=== PATIENT | male | born 1945 | race Caucasian/White ===

== ENCOUNTER 2019-04-29 21:35 | Emergency (ER) | payer MEDICARE, MEDICAID, SELFPAY ==
[2019-04-29 21:36] VITALS: BP 196/100; PULSE 67; RESP 18; TEMP 36.8; O2SAT 99; BMI 35.2
--- NOTE | 2019-04-29 21:58 | CT_ITS ---
STUDY: CT BRAIN WITHOUT CONTRAST REASON FOR EXAM: Male, 73 years old. Injury after falling downstairs. Pain. TECHNIQUE: Transaxial CT imaging of the brain was performed without administration of intravenous contrast material. Individualized dose optimization techniques were used for this CT. COMPARISON: No relevant priors. FINDINGS: No evidence of intracranial hemorrhage, mass, acute infarct, or hydrocephalus. Chronic microangiopathic changes in the white matter. Atherosclerosis of the intracranial arteries. No skull fracture or acute osseous abnormality. Visualized paranasal sinuses and mastoid air cells patent. Left supraorbital frontal scalp hematoma. CT/Brain/Head without Contrast IMPRESSION: No evidence of intracranial injury or skull fracture. Left supraorbital frontal scalp hematoma. Electronically Signed: Andrew Schmidt, at 22:58 EST Tel , Service support ,
--- NOTE | 2019-04-29 21:59 | RAD_ITS ---
STUDY: X-RAY - LEFT SHOULDER REASON FOR EXAM: Male, 73 years old. Pain after falling. TECHNIQUE: 2 view(s) of the shoulder. COMPARISON: None. FINDINGS: Acute impacted comminuted fracture of the proximal left humerus extending through the anatomic neck, and through a portion of the base of the greater trochanter. Glenohumeral and acromioclavicular alignment maintained. No other fracture is evident. Left axillary surgical clips and soft tissue calcifications adjacent to the left shoulder. RAD/Shoulder min 2 Views IMPRESSION: Acute impacted comminuted fracture of the proximal left humerus. Electronically Signed: Andrew Schmidt, at 22:35 EST Tel , Service support ,
--- NOTE | 2019-04-29 21:59 | CT_ITS ---
STUDY: CT CERVICAL SPINE WITHOUT CONTRAST REASON FOR EXAM: Male, 73 years old. Pain after falling downstairs. TECHNIQUE: High resolution transaxial imaging was performed without contrast material. Sagittal and coronal images were reconstructed. Individualized dose optimization techniques were used for this CT. COMPARISON: None FINDINGS: No fracture or dislocation of the cervical spine. Alignment anatomic. Disc osteophyte complex causes moderate spinal canal and high-grade bilateral foraminal narrowing at C4-5, C5-6, and C6-7. Less prominent narrowing at other levels. Large anterior osteophytes at C2-3 and C3-4. No acute findings in the paraspinal soft tissues. No prevertebral hematoma.[] CT/Spine Cervical without Contras IMPRESSION: No fracture or dislocation of the cervical spine. Electronically Signed: Andrew Schmidt, at 23:02 EST Tel , Service support ,
[2019-04-29 22:43] VITALS: BP 153/79; PULSE 70; RESP 16; O2SAT 99
[2019-04-29] MEDS: Diphth,Pertuss(Acell),Tet Vac 0.5 ML Vial IM (22:43)
[2019-04-29] MEDS: Morphine 4 MG/ML Syringe IV (23:03)
--- NOTE | 2019-04-30 00:04 | ED.VISSUMM ---
- ER Visit Summary Date of Service: 04/30/19 Chief Complaint: Fall History of Present Illness: The patient is a 73 M who presents after a fall that occurred today. Patient slipped and fell down approximately 6 steps. Patient did hit his head. Patient denies any loss of consciousness. Patient complains of pain over the left forehead and neck. Patient also complains of pain in his left upper arm and shoulder area. Patient describes the pain as throbbing. Patient states the pain is worse with movement. Patient has a history of Parkinson's disease and lung cancer. Physical Examination: Vital signs are stable. Patient is afebrile. Patient is in no acute distress. Skin is warm dry. There is a hematoma and abrasion over the left forehead. There is no active bleeding. There is no bony crepitance or step-off. Pupils are equal, round, and reactive to light bilaterally. Extraocular muscles are intact. Oral mucosa is pink and moist. There is tenderness over the cervical spine and paraspinal muscles. Cervical collar is in place. Heart was regular rate and rhythm. Lungs are clear and equal bilaterally. Abdomen is soft. Bowel sounds are normal. There is no tenderness. Extremities are intact. There is tenderness over the left shoulder and proximal humerus. There is no deformity noted. Range of motion was limited in all motions of the left shoulder secondary to pain. Radial pulses are equal bilateral. There is no tenderness or deformities of the lower extremities. There is good range of motion of the lower extremities. Cranial nerves II through XII are intact. There are no focal motor or sensory deficits noted. Test Results: CT scan of the brain and cervical spine were obtained and were within normal limits. X-rays of the left shoulder were obtained. There is a proximal humerus fracture. These were interpreted by the radiologist and reviewed by myself. Emergency Department Course and Treatment: Patient was given an injection of morphine here. Patient was placed in a sling and swath. Patient was instructed to use ice to the area. Bacitracin dressing was applied to the forehead abrasion. Patient was instructed to follow-up with his primary care physician in 3 to 5 days. Patient and family understood and were agreeable with the plan. All questions were answered. Disposition: Discharge home Impression: 1. Left proximal humerus fracture 2. Left forehead contusion 3. Left forehead abrasion This note was generated with Dragon dictation software. It may contain incorrect words, spelling, and punctuation that were not noted in review of the chart prior to signing ED Disposition - Plan for ED Patient: Disposition: Home or Assisted Living Diagnosis: Forehead contusion, Abrasion head, Closed fracture of left proximal humerus Instructions: FRACTURE, Shoulder, HEAD INJURY, No Wake-Up (Adult), Abrasion Referrals: Peg Douglas MD [Primary Care Provider] - 5-7 Days
[2019-04-30 00:47] VITALS: BP 145/78; PULSE 70; RESP 14; O2SAT 97
[2019-04-30] MEDS: Ondansetron ODT 4 MG Tablet 8 MG PO (00:47)
[2019-04-30] MEDS: BACITRACIN 15 GM Tube 1 APPLIC TOPICAL (00:47)
--- NOTE | 2019-04-30 00:48 | ED.RN ---
pt became dizzy and nauseous when sitting up. Azar Ramirez ordered and given. Paper shirt and pants placed on pt. Wheelchair to van provided by me.
== END 2019-04-30 00:49 | disposition home or self-care (01) ==
PROVIDERS: Emergency Provider Emergency Medicine; PCP Student in an Organized Health Care Education/Training Program
DX: S42.202A Unspecified fracture of upper end of left humerus, initial encounter for closed fracture (principal); S00.03XA Contusion of scalp, initial encounter; S00.81XA Abrasion of other part of head, initial encounter; W10.9XXA Fall (on) (from) unspecified stairs and steps, initial encounter; G20 Parkinson's disease; Z85.118 Personal history of other malignant neoplasm of bronchus and lung
CPT/HCPCS: 70450; 72125; 73030; 90471; 90715; 96374; 99285; J7030; A4216